=== PATIENT | male | born 1990 | race African-American/Black ===

== ENCOUNTER 2021-10-22 15:29 | Emergency (ER) | payer BC, OTHER ==
[~2021-10-22] VITALS: Ht 188 cm; Wt 111.8 kg
[~2021-10-22 15:29] MED LIST: ALBU2.5V14 IH; ALBU8.5H6 IH; AZIT250T6 PO; FLUT50DI IH; PRED50TA PO
[2021-10-22] MEDS ORDERED: IPRATRPIUM/ALBUTEROL 0.5/2.5MG 3 ML NEBU. ONE (15:57)
[2021-10-22] MEDS ORDERED: IPRATRPIUM/ALBUTEROL 0.5/2.5MG 3 ML NEBU. NEB ONE ×4 (16:00→16:45)
[2021-10-22] MEDS ORDERED: DEXAMETHASONE SOD PHOS 20 MG/5 ML VIAL. IM ONE (16:00)
--- NOTE | 2021-10-22 16:39 | RAD ---
XR CHEST 1V 10/22/2021 4:15 PM INDICATION: Shortness of breath COMPARISON: 01/27/2013 TECHNIQUE: Portable frontal view of the chest is provided. FINDINGS: The cardiomediastinal silhouette is within normal limits. Lungs are clear. There are no significant pleural effusions. There is no pulmonary vascular congestion. No pneumothora x. No suspicious osseous abnormality. IMPRESSION: There is no acute cardiopulmonary process. Electronically signed by: Michelle Ferrari MD (10/22/2021 4:37 PM) [id number]
--- NOTE | 2021-10-22 17:29 | PHYS DOC ---
Past Medical History Past Medical History: Asthma Past Surgical History: Other Additional Past Surgical Histo: L) knee surgery (2010 or 2010) Smoking Status: Never Smoker Alcohol Use: None Drug Use: None General Adult EDM: Chief Complaint: SHORTNESS OF BREATH HPI: HPI: Patient is a 31 year old male presents with shortness of breath secondary to his asthma. Patient states that typically in the spring and the fall he has worsening asthma exacerbations. Patient denies any fevers or chills. States that he it was using his inhaler but he ran out of his prescription refills. Patient able answer questions in full sentences. Patient does not appear to be in distress. Patient does admit to smoking cigarettes Review of Systems: Review of Systems: Constitutional: Denies fever or chills. Eyes: Denies change in visual acuity. HENT: Denies nasal congestion or sore throat. Respiratory: Short of breath Cardiovascular: Denies chest pain or edema. GI: Denies abdominal pain, nausea, vomiting, bloody stools or diarrhea. : Denies dysuria. Musculoskeletal: Denies back pain or joint pain. Integument: Denies rash. Neurologic: Denies headache, focal weakness or sensory changes. Endocrine: Denies polyuria or polydipsia. Lymphatic: Denies swollen glands. Psychiatric: Denies depression or anxiety. Heart Score: C/O Chest Pain: No Risk Factors: Risk Factors: DM, Current or recent (<one month) smoker, HTN, HLP, family history of CAD, obesity. Risk Scores: Score 0 - 3: 2.5% MACE over next 6 weeks - Discharge Home Score 4 - 6: 20.3% MACE over next 6 weeks - Admit for Clinical Observation Score 7 - 10: 72.7% MACE over next 6 weeks - Early Invasive Strategies Current Medications: Current Medications Medications (Trade) Dose Ordered Sig/Anju Start Time Stop Time Status Last Admin Dose Admin Albuterol/ Ipratropium (Duoneb) 3 ml 1X ONCE 10/22/21 16:45 10/22/21 16:46 DC 10/22/21 16:45 3 ML Dexamethasone Sodium Phosphate (Decadron) 10 mg 1X ONCE 10/22/21 16:00 10/22/21 16:01 DC 10/22/21 16:06 10 MG Allergies: Allergies: Allergies Coded Allergies Type Severity Reaction Last Updated Verified No Known Drug Allergies 10/22/21 No Physical Exam: PE: Constitutional: Well developed, well nourished, no acute distress, non-toxic appearance. HENT: Normocephalic, atraumatic, bilateral external ears normal, oropharynx moist, no oral exudates, nose normal. Eyes: PERRLA, EOMI, conjunctiva normal, no discharge. Neck: Normal range of motion, no tenderness, supple, no stridor. Cardiovascular:Heart rate regular rhythm, no murmur Lungs & Thorax: No respiratory distress. Patient does have audible diffuse wheezing. Abdomen: Bowel sounds normal, soft, no tenderness, no masses, no pulsatile masses. Skin: Warm, dry, no erythema, no rash. Back: No tenderness, no CVA tenderness. Extremities: No tenderness, no cyanosis, no clubbing, ROM intact, no edema. Neurologic: Alert and oriented X 3, normal motor function, normal sensory f unction, no focal deficits noted. Psychologic: Affect normal, judgement normal, mood normal. Current Patient Data: Vital Signs: Vital Signs Date Time Temp Pulse Resp B/P (MAP) Pulse Ox O2 Delivery O2 Flow Rate FiO2 10/22/21 17:05 96 Room Air 10/22/21 15:34 98.8 73 22 177/81 (113) 98.8 EKG: EKG: [] Radiology/Procedures: Radiology/Procedures: []XR CHEST 1V 10/22/2021 4:15 PM INDICATION: Shortness of breath COMPARISON: 01/27/2013 TECHNIQUE: Portable frontal view of the chest is provided. FINDINGS: The cardiomediastinal silhouette is within normal limits. Lungs are clear. There are no significant pleural effusions. There is no pulmonary vascular congestion. No pneumothorax. No suspicious osseous abnormality. IMPRESSION: There is no acute cardiopulmonary process. Course & Med Decision Making: Course & Med Decision Making Pertinent Labs and Imaging studies reviewed. (See chart for details) Patient vital signs are stable. Patient was reevaluated states that he feels much better return precautions were discussed patient's albuterol was refilled. Dragon Disclaimer: Dragon Disclaimer: This electronic medical record was generated, in whole or in part, using a voice recognition dictation system. Departure Departure Referrals: NO PCP (PCP) ASHLEIGH TENORIO DO Oct 22, 2021 17:29
[2021-10-22] MEDS ORDERED: ALBU2.5V8 IH (17:31)
[2021-10-22 17:54] VITALS: BP 153/89
== END 2021-10-22 17:56 | disposition home or self-care (01) ==
LOC: ER 15:29
DX: R06.02 Shortness of breath (principal); J45.909 Unspecified asthma, uncomplicated
CPT/HCPCS: 71045; 94640; 96372; 99285; J1100